=== PATIENT | female | born 1945 | race Hispanic/Latino ===

== ENCOUNTER → 2018-01-07 | Outpatient (CLI) | payer OTHER ==
[~2018-01-07] VITALS: Ht 152.4 cm; Wt 45.2 kg
[~2018-01-07] MED LIST: ALEN70SO3 PO; ATOR40TA71 PO; BRIM10DR16 OU; CEFAZOLIN SODIUM 1 GM VIAL IVP ONE; D3 PEG; DORZ10DR10 OP; INSU100V12 SQ; ISOS30TA6 PO; LATA7.5D OP; LEVO50TA11 PO; LISI10TA7 PO; METF-445 PO; METO-408 PO; METO25TA6 PO; NITR0.4T50 SL; OXYBUTYNIN PO; SODIUM CHLORIDE 0.9% 1000ML 1,000 ML IV SCH; TICA90TA PO; TRAM50TA4 PO; VICTOZA SQ; VIT B12 PO
[2018-01-07 16:02] LABS: BASOPHILS % (AUTO) 0.1 % (0.0-5.0); EOSINOPHILS % (AUTO) 1.6 % (0.0-8.0); HEMATOCRIT 34.3 % (36-48); LYMPHOCYTES % (AUTO) 29.8 % (21.0-51.0); MEAN CORPUSCULAR HEMOGLOBIN 29.8 pg (27.0-33.0); MEAN CORPUSCULAR HGB CONC 33.3 g/dL (32.0-36.0); MEAN CORPUSCULAR VOLUME 89.6 fL (79-99); NEUTROPHILS % (AUTO) 62.5 % (40.0-77.0); PLATELET COUNT (AUTO) 124 K/uL (130-400); RED BLOOD CELL COUNT(AUTO) 3.82 MIL/uL (4.00-5.50); RED CELL DISTRIBUTION WIDTH 13.5 % (11.0-15.5); WHITE BLOOD COUNT (AUTO) 6.1 K/uL (4.8-10.8)
[2018-01-07 16:06] VITALS: BP 98/51
[2018-01-07 16:11] LABS: CREATININE 0.7 mg/dL (0.5-1.5); POTASSIUM 5.1 mmol/L (3.5-5.1)
[2018-01-07 16:12] LABS: INR 0.98 (0.85-1.15); PARTIAL THROMBOPLASTIN TIME 25.9 SEC (26.3-35.5); PROTHROMBIN TIME 10.3 SEC (9.6-11.6)
== END | disposition home or self-care (01) ==
LOC: DAH 10:00 → EDSTATUS 15:00
PROVIDERS: ATTEND Internal Medicine Cardiovascular Disease
DX: I25.5 Ischemic cardiomyopathy (principal); R94.31 Abnormal electrocardiogram [ECG] [EKG]; I25.10 Atherosclerotic heart disease of native coronary artery without angina pectoris; I11.0 Hypertensive heart disease with heart failure; I50.22 Chronic systolic (congestive) heart failure; E11.9 Type 2 diabetes mellitus without complications; E03.9 Hypothyroidism, unspecified; M19.90 Unspecified osteoarthritis, unspecified site; Z95.0 Presence of cardiac pacemaker
CPT/HCPCS: 36415; 80048; 85025; 85610; 85730; 93005

== ENCOUNTER 2018-01-24 06:04 | Observation (INO) | payer OTHER ==
[2018-01-22 11:52] LABS: BASOPHILS % (AUTO) 0.3 % (0.0-5.0); EOSINOPHILS % (AUTO) 1.3 % (0.0-8.0); HEMATOCRIT 35.5 % (36-48); MEAN CORPUSCULAR HEMOGLOBIN 30.1 pg (27.0-33.0); MEAN CORPUSCULAR HGB CONC 33.3 g/dL (32.0-36.0); MEAN CORPUSCULAR VOLUME 90.5 fL (79-99); MONOCYTES % (AUTO) 6.7 % (3.0-13.0); NEUTROPHILS % (AUTO) 68.7 % (40.0-77.0); NUCLEATED RED BLOOD CELLS 0.1 % (0.0-0.19); PLATELET COUNT (AUTO) 183 K/uL (130-400); RED BLOOD CELL COUNT(AUTO) 3.92 MIL/uL (4.00-5.50); RED CELL DISTRIBUTION WIDTH 14.1 % (11.0-15.5); WHITE BLOOD COUNT (AUTO) 5.9 K/uL (4.8-10.8)
[2018-01-22 11:58] LABS: CREATININE 0.8 mg/dL (0.5-1.5); POTASSIUM 5.2 mmol/L (3.5-5.1)
[2018-01-22 12:12] LABS: INR 0.93 (0.85-1.15); PARTIAL THROMBOPLASTIN TIME 25.5 SEC (26.3-35.5); PROTHROMBIN TIME 9.8 SEC (9.6-11.6)
[2018-01-22 12:13] VITALS: BP 105/62
[2018-01-22] MEDS: CEFAZOLIN SODIUM 1 GM VIAL IVP SCH (14:45)
[2018-01-23] MEDS: CEFAZOLIN SODIUM 1 GM VIAL IVP SCH (14:45)
[2018-01-24] VITALS (11 sets, daily range): BP systolic 106–129; BP diastolic 54–61
[~2018-01-24] VITALS: Ht 149.9 cm; Wt 46.4 kg
[~2018-01-24 06:04] MED LIST changes: -CEFAZOLIN SODIUM 1 GM VIAL IVP ONE; -SODIUM CHLORIDE 0.9% 1000ML 1,000 ML IV SCH; +SODIUM CHLORIDE 0.9% 500ML 500 ML IV SCH
[2018-01-24] MEDS ORDERED: SODIUM CHLORIDE 0.9% 1000ML 1,000 ML IV ONE (07:35)
[2018-01-24] MEDS ORDERED: BUPIVACAINE/PF 0.25% 50ML VIAL IJ ONE (08:40)
[2018-01-24] MEDS ORDERED: LIDOCAINE HCL 1% MDV 50ML VIAL ONE (08:40)
[2018-01-24] MEDS ORDERED: CEFAZOLIN SODIUM 1 GM VIAL ONE (09:04)
[2018-01-24] MEDS ORDERED: MEPERIDINE-PF 25 MG/ML SYG ONE ×2 (09:05→11:04)
[2018-01-24] MEDS ORDERED: MIDAZOLAM HCL 1 MG/ML 2ML VIAL ONE ×2 (09:05→11:04)
[2018-01-24] MEDS ORDERED: NITROGLYCERIN 0.4 MG SL TAB SL SCH (11:45)
[2018-01-24] MEDS ORDERED: ACETAMINOPHEN-CODEINE 300/30MG TAB PO PRN ×2 (11:45)
[2018-01-24] MEDS ORDERED: TEMAZEPAM 30 MG CAP PO PRN (11:45)
[2018-01-24] MEDS ORDERED: ACETAMINOPHEN 325 MG TAB PO PRN (11:45)
[2018-01-24] MEDS ORDERED: ONDANSETRON HCL 4 MG/2 ML VIAL IV PRN (11:45)
[2018-01-24] MEDS ORDERED: TRAMADOL HCL 50 MG TABLET PO PRN ×2 (11:45→20:15)
[2018-01-24] MEDS: CEFAZOLIN SODIUM 1 GM VIAL IVP SCH (12:26)
[2018-01-24] MEDS ORDERED: PHARMACY COMMUNICATION MISC SCH (21:00)
[2018-01-24] MEDS: TICAGRELOR 90 MG TABLET PO SCH (21:07)
[2018-01-25 03:50] VITALS: BP 129/64
[2018-01-25] MEDS ORDERED: LEVOTHYROXINE 50 MCG TABLET PO SCH (06:30)
[2018-01-25 07:57] VITALS: BP 116/64
[2018-01-25] MEDS: TICAGRELOR 90 MG TABLET PO SCH (08:05)
[2018-01-25] MEDS ORDERED: ATORVASTATIN CALCIUM 40 MG TABLET PO SCH (09:00)
[2018-01-25] MEDS ORDERED: ISOSORBIDE MONO 30MG TAB SR PO SCH (09:00)
[2018-01-25 11:24] VITALS: BP 128/55
== END 2018-01-25 13:51 | disposition home or self-care (01) ==
LOC: DAH 06:04 → DAHIP 06:05 → DAH 06:05 → 2AH 12:01
PROVIDERS: ADMIT Internal Medicine Critical Care Medicine; ATTEND Internal Medicine Critical Care Medicine
DX: I25.5 Ischemic cardiomyopathy (principal); E03.9 Hypothyroidism, unspecified; E11.36 Type 2 diabetes mellitus with diabetic cataract; I25.10 Atherosclerotic heart disease of native coronary artery without angina pectoris; M19.90 Unspecified osteoarthritis, unspecified site; R32 Unspecified urinary incontinence; I44.7 Left bundle-branch block, unspecified; I50.22 Chronic systolic (congestive) heart failure; I11.0 Hypertensive heart disease with heart failure; Z95.0 Presence of cardiac pacemaker
CPT/HCPCS: 33225; 33249; 36415; 71045; 80048; 82948 ×5; 85025; 85610; 85730; A4606; C1769; C1882; C1895 ×2; C1900; G0378 ×32; J0690; J2175 ×2; J2250 ×2; J3490 ×2; J7030; 99156; 99157